=== PATIENT | female | born 1970 | race Caucasian/White ===

== ENCOUNTER → 2017-06-05 | Outpatient (CLI) | payer BC ==
--- NOTE | 2017-06-05 16:46 | US ---
EXAMINATION TYPE: US thyroid st tissue head/neck DATE OF EXAM: 06/05/2017 COMPARISON: NONE CLINICAL HISTORY: E03.9 Hypothyroidism. Pt states thyroid felt enlarged by physician/ pt on thyroid m eds x 15 years GLAND SIZE: Right Lobe: 6.4 x 2.5 x 3.0 cm Overall Parenchyma: heterogenous Left Lobe: 6.9 x 2.5 x 2.4 cm Overall Parenchyma: heterogeneous Isthmus Thickness: 0.5 cm Bilateral neck scanned, no evidence of lymphadenopathy. Bilateral enlarged, heterogeneous thyroid wit h "cobblestone" appearance IMPRESSION: There is symmetrical thyroid gland enlargement with heterogeneity. No dominant thyroid mass. This is consistent with multinodular goiter.
== END | disposition home or self-care (01) ==
LOC: RADUSWWP 16:10
PROVIDERS: ATTEND Family Medicine
DX: E04.2 Nontoxic multinodular goiter (principal)
CPT/HCPCS: 76536

== ENCOUNTER → 2019-04-17 | Outpatient (CLI) | payer BC ==
--- NOTE | 2019-04-21 09:19 | MM ---
Reason for exam: screening (asymptomatic). Last mammogram was performed 4 years and 5 months ago. History: Family history of breast cancer in sister at age 55. Taking hormonal contraceptives. Physical Findings: A clinical breast exam by your physician is recommended on an annual basis and results should be correlated with mammographic findings. MG Screening Mammo w CAD Bilateral CC and MLO view(s) were taken. Prior study comparison: November 26, 2014, bilateral MG screening mammo w CAD. There are scattered fibroglandular densities. There is chronic nodularity in the left breast. Tiny 4mm nodular area anterior right breast appears circumscribed and probably represents a tiny cyst. 6 month follow up recommended. Otherwise, no signinificant change. These results were verbally communicated with the patient and result sheet given to the patient on 04/17/19. ASSESSMENT: Probably benign, BI-RAD 3 RECOMMENDATION: Follow-up diagnostic mammogram of the right breast in 6 months.
== END | disposition home or self-care (01) ==
LOC: RADMAMWWP 13:57
PROVIDERS: ATTEND Family Medicine
DX: Z12.31 Encounter for screening mammogram for malignant neoplasm of breast (principal)
CPT/HCPCS: 77067

== ENCOUNTER 2019-07-01 19:22 | Emergency (ER) | payer BC ==
[2019-07-01 19:44] VITALS: RESP 18
[2019-07-01] MEDS ORDERED: ONDANSETRON 4 MG ODT STARTER PACK 2 TAB BTL PO STA (20:40)
--- NOTE | 2019-07-01 20:43 | ED ---
Abdominal Pain HPI - General Chief Complaint: Abdominal Pain Stated Complaint: Lower Abd pain, vomiting Time Seen by Provider: 07/01/19 20:29 Source: patient, RN notes reviewed, old records reviewed Mode of arrival: ambulatory Limitations: no limitations - History of Present Illness Initial Comments: This is a 49-year-old female presents emergency department today for evaluation with chief complaint of episode of left-sided flank pain dysuria and polyuria starting this afternoon. She reports she took 800 mg both Motrin. At this time she denies any significant pain and feeling better. She does complain of some mild nausea at this time. No history of kidney stones. She states that she was feeling well up until this afternoon. Patient states she's had history of bariatric surgery. Patient denies any recent fever, chills, shortness of breath, chest pain, vomiting, numbness or tingling, dysuria or hematuria, constipation or diarrhea, headaches or visual changes, or any other current symptoms - Related Data Home Medications Medication Instructions Recorded Confirmed Albuterol Sulfate [Proair Hfa] 1 - 2 puff INHALATION Q6HR PRN 07/01/19 07/01/19 Desvenlafaxine Succinate [Pristiq 50 mg PO DAILY 07/01/19 07/01/19 ER] Fluticasone/Salmeterol [Advair 1 inhalation PO BID 07/01/19 07/01/19 250-50 Diskus] Levothyroxine Sodium [Synthroid] 100 mcg PO DAILY 07/01/19 07/01/19 Montelukast Sodium [Singulair] 10 mg PO HS 07/01/19 07/01/19 Previous Rx's Medication Instructions Recorded Acetaminophen with Codeine 1 tab PO Q6H PRN 3 Days #12 tab 07/01/19 [Tylenol w/codeine #3] Ketorolac [Toradol] 10 mg PO Q6HR #12 tab 07/01/19 Ondansetron Odt [Zofran Odt] 4 mg PO Q8HR PRN #12 tab 07/01/19 Tamsulosin [Flomax] 0.4 mg PO DAILY #7 cap 07/01/19 Allergies Allergy/AdvReac Type Severity Reaction Status Date / Time No Known Allergies Allergy Verified 07/01/19 21:08 Review of Systems ROS Statement: Those systems with pertinent positive or pertinent negative responses have been documented in the HPI. ROS Other: All systems not noted in ROS Statement are negative. Past Medical History Past Medical History: Asthma History of Any Multi-Drug Resistant Organisms: None Reported Additional Past Surgical History / Comment(s): bariatric surgery Past Psychological History: Depression Smoking Status: Never smoker Past Alcohol Use History: None Reported Past Drug Use History: None Reported General Exam - General Exam Comments Initial Comments: Is a 49-year-old female. No distress. Alert and oriented 3. No distress. General: Well appearing, well nourished, in no distress. Oriented x 3, normal mood and affect . Ambulating without difficulty. Skin: Good turgor, no rash, unusual bruising or prominent lesions Hair: Normal texture and distribution. HEENT: Head: Normocephalic, atraumatic, no visible or palpable masses, depressions, or scaring. Neck: Supple, without lesions, bruits, or adenopathy, thyroid non-enlarged and non-tender Heart: No cardiomegaly or thrills; regular rate and rhythm, no murmur or gallop Lungs: Clear to auscultation and percussion Abdomen: Bowel sounds normal, no tenderness, organomegaly, masses, or hernia Back: Spine normal without deformity or tenderness, no CVA tenderness Extremities: No amputations or deformities, cyanosis, edema or varicosities, peripheral pulses intact Musculoskeletal: Normal gait and station. No misalignment, asymmetry, crepitation, defects, tenderness, masses, effusions, decreased range of motion, instability, atrophy or abnormal strength or tone in the head, neck, spine, ribs, pelvis or extremities. Neurologic: CN 2-12 normal. Sensation to pain, touch, and proprioception normal. DTRs normal in upper and lower extremities. No pathologic reflexes. Psychiatric: Oriented X3, intact recent and remote memory, judgment and insight, normal mood and affect. Limitations: no limitations Course Vital Signs 07/01/19 19:40 Temperature 98.3 F Pulse Rate 63 Respiratory 18 Rate Blood Pressure 124/80 O2 Sat by Pulse 97 Oximetry Medical Decision Making - Medical Decision Making Patient's 49-year-old female with history of [place] surgery. She presents today with onset of some left-sided flank pain and polyuria. Patient is concerned of possible infection. With onset of pain as this could possibly kidney stone. Urinalysis completed KUB. I did offer the Patient to do IV fluids and blood work. She prefers to just check a urine sample. Urine sample is positive for hematuria. No infection. She'll he complains of nausea no pain. I did again offer Patient IV fluids and further workup with CAT scan. Patient is referred to be discharged home with pain meds. Discussed prompt return parameters and close follow-up with PCP. PATIENT'S rates her return parameters were discussed. - Lab Data Lab Results 07/01/19 Range/Units 20:51 Urine Color Yellow Urine Appearance Cloudy H (Clear) Urine pH 5.5 (5.0-8.0) Ur Specific [place] 1.024 (1.001-1.035) Urine Protein Trace H (Negative) Urine Glucose (UA) Negative (Negative) Urine Ketones Negative (Negative) Urine Blood Moderate H (Negative) Urine Nitrite Negative (Negative) Urine Bilirubin Negative (Negative) Urine Urobilinogen 2.0 (<2.0) mg/dL Ur Leukocyte Esterase Small H (Negative) Urine RBC 90 H (0-5) /hpf Urine WBC 5 (0-5) /hpf Ur Squamous Epith Cells 5 H (0-4) /hpf Urine Bacteria Rare H (None) /hpf Urine Mucus Few H (None) /hpf - Radiology Data Radiology results: report reviewed KUB is negative for any acute radiographic process. No abdominal calcification appreciated. Disposition Clinical Impression: Hematuria, Nausea Disposition: HOME SELF-CARE Condition: Good Additional Instructions: Patient advsied to have prompt follow-up with your primary care physician. Take the medications as prescribed. [facility]. To drink plenty of fluids. There is any fever or worsening pain or unable to take medications please return to the ER for reevaluation. Prescriptions: Tamsulosin [Flomax] 0.4 mg PO DAILY #7 cap Ketorolac [Toradol] 10 mg PO Q6HR #12 tab Acetaminophen with Codeine [Tylenol w/codeine #3] 1 tab PO Q6H PRN 3 Days #12 tab PRN Reason: Pain Ondansetron Odt [Zofran Odt] 4 mg PO Q8HR PRN #12 tab PRN Reason: Nausea Is patient prescribed a controlled substance at d/c from ED?: Yes If prescribed controlled substance>3 days was MAPS reviewed?: Prescribed <3 Days Referrals: Sharif Hu DO [Primary Care Provider] - 1-2 days Time of Disposition: 22:10
[2019-07-01 21:01] LABS: Appearance,Urine Cloudy (Clear); Bacteria,Urine Rare /hpf; Bilirubin,Urine Negative (Negative); Blood,Urine Moderate (Negative); Color,Urine Yellow; Glucose,Urine (UA) Negative (Negative); Ketones,Urine Negative (Negative); Leukocyte Esterase,Urine Small (Negative); Mucus,Urine Few /hpf; Nitrite,Urine Negative (Negative); PH, Urine 5.5 (5.0-8.0); Protein,Urine Trace (Negative); RBC,Urine 90 /hpf (0-5); Specific Gravity,Urine 1.024 (1.001-1.035); Squamous Epithelial Cell,Urine 5 /hpf (0-4)
--- NOTE | 2019-07-01 21:44 | XR ---
EXAMINATION TYPE: XR KUB DATE OF EXAM: 07/01/2019 9:09 PM CLINICAL HISTORY: Left-sided abdominal pain with urination, pain TECHNIQUE: 2 upright views. COMPARISON: None. FINDINGS: Scattered gas is seen in non-distended small bowel loops. Gas and fecal material is seen in non-distended colon. There is no visceromegaly, pneumoperitoneum, or abnormal calcification apprecia karan. The lung bases are clear and the osseous structures are intact. IMPRESSION: No acute radiographic process.
[2019-07-01] MEDS ORDERED: KETOROLAC 30 MG/ML 1 ML VIAL IM STA (22:09)
[2019-07-01] MEDS ORDERED: TAMSULOSIN 0.4 MG CAP.ER.24H PO STA (22:09)
[2019-07-01] MEDS ORDERED: ACET/COD 300 MG/30 MG STARTER PACK 6 TAB BTL PO STA (22:09)
[2019-07-01 22:28] VITALS: BP 117/71; PULSE 60; TEMP 98.2
== END 2019-07-01 22:28 | disposition home or self-care (01) ==
LOC: EC 19:22
DX: R31.9 Hematuria, unspecified (principal); R11.0 Nausea; R10.30 Lower abdominal pain, unspecified; R35.8 Other polyuria; J45.909 Unspecified asthma, uncomplicated; F32.9 Major depressive disorder, single episode, unspecified; Z79.51 Long term (current) use of inhaled steroids; Z79.890 Hormone replacement therapy; Z79.899 Other long term (current) drug therapy; Z98.84 Bariatric surgery status
CPT/HCPCS: 81001; 74018; 99284; 96372; J1885; S0119

== ENCOUNTER → 2019-11-19 | Outpatient (CLI) | payer BC ==
--- NOTE | 2019-11-25 10:06 | MM ---
Reason for exam: follow-up at short interval from prior study. Last mammogram was performed 7 months ago. History: Family history of breast cancer in sister at age 55. Taking hormonal contraceptives for 5 years. Physical Findings: Nurse did not find any significant physical abnormalities on exam. MG 3D Diag Mammo W/Cad RT CC, MLO, and XCCL view(s) were taken of the right breast. Prior study comparison: April 17, 2019, bilateral MG screening mammo w CAD. November 26, 2014, bilateral MG screening mammo w CAD. There are scattered fibroglandular densities. Finding: There is a stable 4 mm circumscribed round mass in the lower inner quadrant, anterior position of the right breast. There is no new dominant lesion. These results were verbally communicated with the patient and result sheet given to the patient on 11/19/19. ASSESSMENT: Benign, BI-RAD 2 RECOMMENDATION: Return to routine screening mammogram schedule for both breasts. Back on schedule.
== END | disposition home or self-care (01) ==
LOC: RADMAMWWP 10:04
PROVIDERS: ATTEND Family Medicine
DX: R92.8 Other abnormal and inconclusive findings on diagnostic imaging of breast (principal)
CPT/HCPCS: 77061; 77065

== ENCOUNTER → 2023-04-10 | Outpatient (CLI) | payer BC ==
[2023-04-10 13:31] VITALS: BP 122/82; RESP 17; TEMP 98.6
--- NOTE | 2023-04-10 14:25 | P.HPOB ---
History of Present Illness H&P Date: 04/10/23 Chief Complaint: The patient is here for her routine gynecologic exam and ma mmogram. This is a 53-year-old with an LMP of 2020. The patient is here to establish with this office. She is without gynecologic complaints and denies any postmenopausal bleeding. Review of Systems Her weight has been stable. She has had a net weight loss of approximately 60 pounds since her gastric bypass in 2013. She denies respiratory or cardiac problems GI: Occasional loose stools which is not new for her. Past Medical History Past Medical History: Asthma, GERD/Reflux, Liver Disease, Thyroid Disorder Additional Past Medical History / Comment(s): HYPOTHYROIDISM. 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 History of fatty liver. 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 History of Any Multi-Drug Resistant Organisms: None Reported Past Surgical History: Bariatric Surgery, Cardiac Ablation, Cholecystectomy Additional Past Surgical History / Comment(s): Gastric sleeve surgery 2013. Past Anesthesia/Blood Transfusion Reactions: No Reported Reaction Past Psychological History: Depression (Stable with medication.) Smoking Status: Never smoker Past Alcohol Use History: Occasional (1 or 2 per month.) Past Drug Use History: None Reported Additional History: She has been since 2020 and this is her second marriage. 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 - Past Family History Sister(s) Family Medical History: Cancer Additional Family Medical History / Comment(s): One sister had breast cancer in her 50s and another sister from lung cancer. Brother(s) Family Medical History: Cancer Additional Family Medical History / Comment(s): Melanoma. Father Family Medical History: Diabetes Mellitus Additional Family Medical History / Comment(s): Alcohol abuse. . Mother Family Medical History: No Reported History Medications and Allergies Home Medications Medication Instructions Recorded Confirmed Type Albuterol Sulfate [Proair Hfa] 1 - 2 puff INHALATION Q6HR PRN 07/01/19 04/10/23 History Desvenlafaxine Succinate [Pristiq 50 mg PO DAILY 07/01/19 04/10/23 History ER] Levothyroxine Sodium [Synthroid] 100 mcg PO DAILY 07/01/19 04/10/23 History Montelukast Sodium [Singulair] 10 mg PO HS 07/01/19 04/10/23 History Fluticasone Propion/Salmeterol 1 puff INHALATION DAILY 04/10/23 04/10/23 History [Wixela 100-50 Inhub] Allergies Allergy/AdvReac Type Severity Reaction Status Date / Time No Known Allergies Allergy Verified 04/10/23 13:25 Exam Vital Signs Temp Resp BP Pulse Ox 04/10/23 13:28 98.6 F 17 122/82 97 Intake and Output 04/09/23 04/10/23 04/10/23 22:59 06:59 14:59 Other: Weight 146.964 kg Height 5 feet 7 inches, weight 324 pounds, BMI 50.7. This is a well-developed well-nourished heavyset white female who is alert and oriented times 3 in no acute distress. HEENT: Within normal limits. NECK: Supple without mass or thyromegaly. CHEST AND LUNGS: Clear to auscultation. HEART: Regular rate and rhythm. BREASTS: Are without mass or discharge. AXILLARY EXAM: Negative for adenopathy. BACK: Negative for CVA tenderness. ABDOMEN: Soft, obese, nontender, without palpable masses. PELVIC EXAM: Normal external genitalia with mild atrophy. Cervix and vagina appear normal with mild atrophy. There is no unusual discharge. There is no evidence of prolapse. The uterus is midposition, nongravid size and nontender. There are no palpable adnexal masses or tenderness. Bimanual examination is somewhat limited secondary to her size. RECTAL EXAM: Rectovaginal exam is negative for mass or tenderness and is negative for occult blood. EXTREMITIES: Nontender. IMPRESSION: 1. 53-year-old menopausal female with normal gynecologic exam. 2. Overweight. PLAN: 1. Pap smear cotest was performed. 2. Self breast awareness was discussed with the patient. We have also discussed symptoms associated with inflammatory breast cancer. 3. Screening mammogram will be done today. 4. Osteoporosis prevention was discussed. I have stressed the importance of adequate calcium, vitamin D and regular exercise. Recommended amounts of calcium and vitamin D were also discussed. 5. I recommended screening colonoscopy based on her age. She states her PCP is currently arranging for her to get a colonoscopy with Dr. Youssef. 6. She was advised to return in one year for her annual well woman exam.
--- NOTE | 2023-04-11 09:09 | MM ---
Reason for Exam: Screening (asymptomatic). Last mammogram was performed 4 year(s) and 0 month(s) ago. Patient History: Menarche at age 12. First Full-Term at age 31. Postmenopausal. Patient has history of breast feeding. Patient used Hormonal Contraceptives for 5 years. Sister had breast cancer, age 55. Risk Values: Amaya 5 year model risk: 2.2%. NCI Lifetime model risk: 18.0%. Prior Study Comparison: 11/26/2014 Bilateral Screening Mammogram, [facility]. 04/17/2019 Bilateral Screening Mammogram, [facility]. 11/19/2019 Right Diagnostic Mammogram, [facility]. Tissue Density: There are scattered fibroglandular densities. Findings: Analyzed By CAD. There is stable 9mm circumscribed oval mass towards the left axilla presumed benign lymph node. There is no suspicious group of microcalcifications or new suspicious mass in either breast. Overall Assessment: Benign, BI-RAD 2 Management: Screening Mammogram of both breasts in 1 year. . Patient should continue monthly self-breast exams. A clinical breast exam by your physician is recommended on an annual basis. This exam should not preclude additional follow-up of suspicious palpable abnormalities. Note on Amaya scores and lifetime risk: 1. A Amaya score greater than 3% is considered moderate risk. If this is the case, consider specialist referral to assess eligibility for a risk reducing agent. 2. If overall lifetime risk for the development of breast cancer is 20% or higher, the patient may qualify for future screening with alternating mammogram and breast MRI. Electronically signed and approved by: Cameron Ashley M.D.
== END ==
LOC: WWCWWP 13:06
PROVIDERS: ATTEND Obstetrics & Gynecology
DX: Z78.0 Asymptomatic menopausal state (principal); Z12.31 Encounter for screening mammogram for malignant neoplasm of breast; Z01.419 Encounter for gynecological examination (general) (routine) without abnormal findings; G20 Parkinson's disease; Z80.3 Family history of malignant neoplasm of breast; Z80.1 Family history of malignant neoplasm of trachea, bronchus and lung; E03.9 Hypothyroidism, unspecified; K21.9 Gastro-esophageal reflux disease without esophagitis; J45.909 Unspecified asthma, uncomplicated
CPT/HCPCS: 77063; 77067

== ENCOUNTER → 2024-03-28 | Outpatient (CLI) | payer BC ==
--- NOTE | 2024-04-17 11:58 | CT ---
EXAMINATION TYPE: CT abdomen pelvis wo con CT DLP: 1072 mGycm, Automated exposure control for dose reduction was used. DATE OF EXAM: 03/28/2024 4:18 PM COMPARISON: None. CLINICAL INDICATION:Female, 54 years old with history of R31.29 OTHER MICROSCOPIC HEMATURIA; microsco pic hematuria TECHNIQUE: Axial CT of the abdomen and pelvis. Sagittal and coronal reformats were created on a [employer] workstation. Contrast used: None Oral contrast used: without Oral Contrast (none if empty) FINDINGS: LOWER CHEST: Mild linear scarring or atelectasis in the lung bases. Heart size upper normal. Prominen t pericardial fat noted particularly on the right. ABDOMEN LIVER: Unremarkable GALLBLADDER AND BILE DUCTS: The gallbladder is surgically absent. Biliary tree does not appear pathol ogically dilated. PANCREAS: Unremarkable. SPLEEN: Unremarkable. ADRENAL GLANDS: Unremarkable. 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 Tiny cluster of punctate calculi suggested in the region of the left lower pole calyx. No def inite ureteral stones or hydroureteronephrosis. PELVIS BLADDER: Mostly decompressed, grossly unremarkable. REPRODUCTIVE: Unremarkable. ABDOMEN & PELVIS STOMACH AND BOWEL: Small to moderate-sized hiatal hernia. Postoperative changes extending from the GE junction along the stomach likely from gastric sleeve. Stomach and small bowel are nondilated and t here is no evidence of obstruction. No sign of appendicitis. Mild/moderate stool throughout the colo n without acute abnormality seen. There are a few diverticula in the sigmoid region without evidence of diverticulitis. PERITONEUM/RETROPERITONEUM: No evidence of pneumoperitoneum or free fluid. VASCULATURE: Aorta and major branches are grossly unremarkable. No AAA. LYMPH NODES: No enlarged nodes by CT size criteria. SOFT TISSUE/ABDOMINAL WALL: No acute abnormality. Mild laxity along the anterior abdominal wall muscu lature at the midline, with small superimposed umbilical hernia. MUSCULOSKELETAL: No acute osseous abnormalities. IMPRESSION: * Tiny cluster of punctate calculi suggested in the lower pole left kidney * No ureteral calculi or hydronephrosis.
== END | disposition home or self-care (01) ==
LOC: RADCTMAIN 15:41
PROVIDERS: ATTEND Family Medicine
DX: R31.29 Other microscopic hematuria (principal)
CPT/HCPCS: 74176

== ENCOUNTER → 2024-08-26 | Outpatient (CLI) | payer BC ==
[2024-08-26 10:56] VITALS: BP 132/67; PULSE 68; RESP 18; TEMP 98.6
--- NOTE | 2024-08-26 11:52 | P.HPOB ---
History of Present Illness H&P Date: 08/26/24 Chief Complaint: The patient is here for her routine gynecologic exam and ma mmogram. This is a 54-year-old with an LMP of 2020. The patient is without gynecologic complaints and denies any postmenopausal bleeding. Review of Systems The patient has Lost about 30 pounds since being on Wegovy for weight loss. There has been about a 10 pound net weight loss since last year. She denies respiratory, cardiac, or G.I. problems. Past Medical History Past Medical History: Asthma, GERD/Reflux, Liver Disease, Thyroid Disorder Additional Past Medical History / Comment(s): HYPOTHYROIDISM. 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 History of fatty liver. 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 History of Any Multi-Drug Resistant Organisms: None Reported Past Surgical History: Bariatric Surgery, Cardiac Ablation, Cholecystectomy Additional Past Surgical History / Comment(s): Gastric sleeve surgery 2013. Past Anesthesia/Blood Transfusion Reactions: No Reported Reaction Past Psychological History: Depression Smoking Status: Never smoker Past Alcohol Use History: Occasional (About 1 drink per month.) Past Drug Use History: None Reported Additional History: She has been since 2020 and this is her second marriage. 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 - Past Family History Sister(s) Family Medical History: Cancer Additional Family Medical History / Comment(s): One sister had breast cancer in her 50s and another sister from lung cancer. Brother(s) Family Medical History: Cancer Additional Family Medical History / Comment(s): Melanoma. Father Family Medical History: Diabetes Mellitus Additional Family Medical History / Comment(s): Alcohol abuse. . Mother Family Medical History: No Reported History Medications and Allergies Home Medications Medication Instructions Recorded Confirmed Type Albuterol Sulfate [Proair Hfa] 1 - 2 puff INHALATION Q6HR PRN 07/01/19 08/26/24 History Desvenlafaxine Succinate [Pristiq 50 mg PO DAILY 07/01/19 08/26/24 History ER] Levothyroxine Sodium [Synthroid] 100 mcg PO DAILY 07/01/19 08/26/24 History Montelukast Sodium [Singulair] 10 mg PO HS 07/01/19 08/26/24 History Fluticasone Propion/Salmeterol 1 puff INHALATION DAILY 04/10/23 08/26/24 History [Wixela 100-50 Inhub] Allergies Allergy/AdvReac Type Severity Reaction Status Date / Time No Known Allergies Allergy Verified 08/26/24 10:52 Exam Vital Signs Temp Pulse Resp BP Pulse Ox 08/26/24 10:53 98.6 F 68 18 132/67 96 Intake and Output 08/25/24 08/26/24 08/26/24 22:59 06:59 14:59 Other: Weight 142.428 kg Height 5 feet 7 inches, weight 314 pounds, BMI 49.2. This is a well-developed well-nourished 10 female who is alert and oriented times 3 in no acute distress. HEENT: Within normal limits. NECK: Supple without mass or thyromegaly. CHEST AND LUNGS: Clear to auscultation. HEART: Regular rate and rhythm. BREASTS: Are without mass or discharge. AXILLARY EXAM: Negative for adenopathy. BACK: Negative for CVA tenderness. ABDOMEN: Soft, obese, nontender, without palpable masses. PELVIC EXAM: Normal external genitalia with minimal atrophy. Cervix and vagina appear normal with minimal atrophy. There is no unusual discharge. There is no evidence of prolapse. The uterus is midposition, nongravid size and nontender. There are no palpable adnexal masses or tenderness. Bimanual examination is somewhat limited secondary to her size. RECTAL EXAM: Rectovaginal exam is negative for mass or tenderness and is negative for occult blood. EXTREMITIES: Nontender. IMPRESSION: 1. 54-year-old menopausal female with normal gynecologic exam. 2. Obesity, with weight loss on Wegovy. PLAN: 1. Pap smear was deferred since she had a negative Pap smear cotest on 04/10/2023. 2. Self breast awareness was discussed with the patient. We have also discussed symptoms associated with inflammatory breast cancer. 3. Screening mammogram will be done today. 4. Osteoporosis prevention was discussed. I have stressed the importance of adequate calcium, vitamin D and regular exercise. Recommended amounts of calcium and vitamin D were also discussed. 5. She states she will be doing Cologuard testing through her PCP for colorectal cancer screening. 6. She was advised to return in one year for her annual well woman exam.
--- NOTE | 2024-08-28 09:24 | MM ---
Reason for Exam: Screening (asymptomatic). Last mammogram was performed 1 year(s) and 4 month(s) ago. Patient History: Menarche at age 12. First Full-Term at age 31. Postmenopausal. Patient has history of breast feeding. Patient used Hormonal Contraceptives for 5 years. Sister had breast cancer, age 55. Risk Values: Amaya 5 year model risk: 2.3%. NCI Lifetime model risk: 17.8%. Prior Study Comparison: 04/17/2019 Bilateral Screening Mammogram, [facility]. 11/19/2019 Right Diagnostic Mammogram, [facility]. 04/10/2023 Bilateral MG 3D screening mammo w/cad, [facility]. Tissue Density: There are scattered areas of fibroglandular density. Findings: Analyzed By CAD. There is no suspicious group of microcalcifications or new suspicious mass in either breast. Overall Assessment: Negative, BI-RAD 1 Management: Screening Mammogram of both breasts in 1 year. . Patient should continue monthly self-breast exams. A clinical breast exam by your physician is recommended on an annual basis. This exam should not preclude additional follow-up of suspicious palpable abnormalities. Note on Amaya scores and lifetime risk: 1. A Amaya score greater than 3% is considered moderate risk. If this is the case, consider specialist referral to assess eligibility for a risk reducing agent. 2. If overall lifetime risk for the development of breast cancer is 20% or higher, the patient may qualify for future screening with alternating mammogram and breast MRI. [facility], , 08/28/2024 9:21 AM. Electronically signed and approved by: Mitch Virgen M.D. Radiolog[facility]
== END ==
LOC: WWCWWP 10:44
PROVIDERS: ATTEND Obstetrics & Gynecology
CPT/HCPCS: 77063; 77067